=== PATIENT | male | born 1990 | race Caucasian/White ===

== ENCOUNTER 2016-11-08 22:24 | Emergency (ER) | payer OTHER ==
[~2016-11-08] VITALS: Ht 175.3 cm; Wt 64.5 kg
[~2016-11-08 22:24] MED LIST: CITRATE OF MAG296 ML PO; IBUPROFEN800 MG PO; MOTRIN800 MG PO; OXYCODONE HCL5 MG PO; PREDNISONE10 M1 PO; TRAMADOL HCL50 MG PO
[2016-11-08 23:34] VITALS: BP 123/78
== END 2016-11-08 23:36 | disposition home or self-care (01) ==
LOC: EME 22:24 → EXP 22:24
DX: S61.411A Laceration without foreign body of right hand, initial encounter (principal); Z23 Encounter for immunization; W25.XXXA Contact with sharp glass, initial encounter
CPT/HCPCS: 99281; 99284

== ENCOUNTER 2016-11-13 02:43 | Emergency (ER) | payer OTHER ==
[~2016-11-13] VITALS: Ht 175.3 cm; Wt 64.4 kg
[2016-11-13] MEDS ORDERED: CLINDAMYCIN HC150 MG PO (03:05)
[2016-11-13 03:27] VITALS: BP 118/84
== END 2016-11-13 03:28 | disposition home or self-care (01) ==
LOC: EME 02:43 → EXP 02:43
DX: T81.4XXA Infection following a procedure, initial encounter (principal); S61.411D Laceration without foreign body of right hand, subsequent encounter; F17.200 Nicotine dependence, unspecified, uncomplicated
CPT/HCPCS: 99281; 99284